=== PATIENT | male | born 1960 | race Caucasian/White ===

== ENCOUNTER 2016-04-18 06:56 | Day surgery (SDC) | payer OTHER ==
[2016-04-18 07:42] VITALS: BMI 28.0
[2016-04-18] MEDS ORDERED: LIDOCAINE HCL/PF 1% SDV 5ML VIAL ONE (08:29)
[2016-04-18] MEDS ORDERED: PROPOFOL 20 ML ONE ×2 (08:29)
[2016-04-18] MEDS ORDERED: SUCCINYLCHOLINE CHLORIDE 200 MG/10 ML VIAL ONE (08:30)
[2016-04-18] MEDS ORDERED: PHENYLEPHRINE HCL 10 MG/1 ML SINGLE DOSE VIAL ONE (08:30)
[2016-04-18] MEDS ORDERED: ePHEDrine SULFATE 50 MG/1 ML AMPULE ONE (08:30)
[2016-04-18 09:23] VITALS: TEMP 97.7
[2016-04-18 13:07] VITALS: BP 109/59; PULSE 69
--- NOTE | 2016-04-19 12:40 | PATH ---
Surgical Pathology Report Patient Name: KOLE HARPER [facility]. Rec. #: [id number] /Age/Gender: 1960 (Age: 55) / M Account: [id number] Location: [facility]-ENDOSCOPY Taken: 04/18/2016 Received: 04/18/2016 Reported: 04/19/2016 Physicians: Maurilio Burgess M.D. Specimen(s) Received ASCENDING RIGHTS COLON POLYP Clinical History Colon screening for malignant neoplasm Moderate diverticulosis, ulcers right colon, hemorrhoids grade 3 Final Diagnosis COLON, ASCENDING/RIGHT, APHTHOUS ULCERS, BIOPSY: COLONIC MUCOSA WITH ACTIVE COLITIS WITH CRYPTITIS, FOCAL SURFACE ULCERATION, PROMINENT REACTIVE LYMPHOID AGGREGATES AND FOCAL MINIMAL CRYPT REGENERATIVE CHANGES (SEE COMMENT). NO EVIDENCE OF GRANULOMATA OR DYSPLASIA. Comment: The histologic findings are not specific and may represent active colitis of various etiologies including infections, drug/toxin injury, or diverticula associated inflammation. However, idiopathic bowel disease without well-established chronicity cannot be excluded. Clinical, endoscopic, serological correlations and follow up are suggested. Electronically Signed Sulaiman Acevedo M.D. Gross Description Received in formalin, labeled "biopsy ascending/right colon" are 3 cotter, irregular portions of soft tissue averaging 0.2 cm. in greatest dimension. The specimens are submitted in toto in one cassette. 04/18/201604/18/2016
== END 2016-04-18 10:00 | disposition home or self-care (01) ==
LOC: JASU-ENDO 06:56
PROVIDERS: ATTEND Internal Medicine Gastroenterology
PROC: 0DBK8ZX Excision of Ascending Colon, Via Natural or Artificial Opening Endoscopic, Diagnostic (ICD-10-PCS; principal; 2016-04-18 08:00)
DX: Z12.11 Encounter for screening for malignant neoplasm of colon (principal); K63.3 Ulcer of intestine; K64.8 Other hemorrhoids; K57.30 Diverticulosis of large intestine without perforation or abscess without bleeding
CPT/HCPCS: 88305-TC